=== PATIENT | male | born 1980 | race Caucasian/White ===

== ENCOUNTER 2017-09-22 22:25 | Emergency (ER) | payer MEDICAID ==
[~2017-09-22] VITALS: Ht 172.7 cm; Wt 77.0 kg
[2017-09-22] MEDS ORDERED: ketorolac trometh. 30mg/ml inj. IV ONE (22:55)
[2017-09-22] MEDS ORDERED: normal saline 1000ML IV soln IVB ONE (22:55)
[2017-09-22] MEDS ORDERED: ondansetron/PF 4mg/2ml inj IV ONE (22:55)
[2017-09-22 22:59] LABS: BASOPHILS % (AUTO) 0.4 % (0-1); EOSINOPHILS # (AUTO) 0.2 X10'3 (0-0.9); EOSINOPHILS % (AUTO) 2.7 % (0-6); HEMATOCRIT 38.5 % (42.0-52.0); LYMPHOCYTES # (AUTO) 3.1 X10'3 (1.1-4.8); LYMPHOCYTES % (AUTO) 39.6 % (21-51); MEAN CORPUSCULAR HEMOGLOBIN 28.7 PG (27.0-31.0); MEAN CORPUSCULAR HGB CONC 33.7 % (33.0-36.5); MEAN CORPUSCULAR VOLUME 85.1 FL (78-98); MONOCYTES # (AUTO) 0.9 X10'3 (0-0.9); NEUTROPHILS # (AUTO) 3.5 X10'3 (1.8-7.7); NEUTROPHILS % (AUTO) 45.3 % (42-75); PLATELET COUNT 145 X10'3 (140-440); RED BLOOD COUNT 4.52 X10'6 (4.70-6.10); RED CELL DISTRIBUTION WIDTH 14.8 % (11.5-14.5); WHITE BLOOD COUNT 7.8 X10'3 (4.5-11.0)
[2017-09-22 23:06] LABS: PROTHROMBIN TIME 10.3 SECONDS (9.0-12.0)
[2017-09-22 23:12] LABS: ALANINE AMINOTRANSFERASE 21 U/L (12-78); ALBUMIN 3.6 G/DL (3.4-5.0); ALBUMIN/GLOBULIN RATIO 0.9 (1.1-1.5); ALKALINE PHOSPHATASE 92 IU/L (46-116); ANION GAP 6 (8-16); ASPARTATE AMINO TRANSFERASE 19 U/L (10-37); BILIRUBIN,TOTAL 0.2 MG/DL (0.1-1.0); BLOOD UREA NITROGEN 11 MG/DL (7-18); BUN/CREATININE RATIO 12.1 (5.4-32.0); CHLORIDE 104 MMOL/L (99-107); CREATININE 0.91 MG/DL (0.60-1.10); GLUCOSE 83 MG/DL (70-104); POTASSIUM 4.2 MMOL/L (3.5-5.1); SODIUM 140 MMOL/L (135-145); TOTAL CARBON DIOXIDE 30.2 MMOL/L (24-32); TOTAL PROTEIN 7.6 G/DL (6.4-8.2); eGFR > 90 ML/MIN
[2017-09-22 23:35] LABS: CLARITY,URINE SLIGHTLY CLOUDY (Clear); COLOR,URINE YELLOW (Yellow); GLUCOSE, URINE NEGATIVE (Neg); KETONES,URINE NEGATIVE (Neg); LEUKOCYTE ESTERASE ,URINE NEGATIVE (Neg); NITRITES, URINE NEGATIVE (Neg); OCCULT BLOOD,URINE LARGE (Neg); PH,URINE 5.5 (4.8-8.0); PROTEIN,URINE 100 mg/dl (Neg)
[2017-09-22] MEDS ORDERED: morphine 4 MG/ML inj SYRINge IV ONE (23:35)
[2017-09-22] MEDS ORDERED: tamsulosin 0.4mg capsule PO ONE (23:41)
[2017-09-22 23:42] LABS: UA COLLECTION TYPE VOIDED
[2017-09-22 23:44] LABS: BACTERIA,URINE FEW /HPF (Neg); CAL OXALATE CRYSTALS FEW /HPF (NEGATIVE); RBC,URINE 50-100 /HPF (0-2); SQUAMOUS EPITHELIAL CELL,UR FEW /LPF (FEW); WBC,URINE 0-4 /HPF (0-4)
[2017-09-23] MEDS ORDERED: ONDA4TAB9 SL (00:17)
[2017-09-23] MEDS ORDERED: HYDR-565 PO (00:17)
[2017-09-23] MEDS ORDERED: FLO0.4C PO ×2 (00:17→02:10)
[2017-09-23] MEDS ORDERED: ondansetron/PF 4mg/2ml inj IV ONE (00:25)
[2017-09-23] MEDS ORDERED: morphine 5 MG/ML injection IV ONE (00:25)
[2017-09-23] MEDS ORDERED: morphine 4 MG/ML inj SYRINge IV ONE (00:35)
[2017-09-23] MEDS ORDERED: HYDR-3965 PO (02:10)
[2017-09-23] MEDS ORDERED: ONDA8TAB9 PO (02:10)
[2017-09-23 02:19] VITALS: BP 102/45
[2017-09-23] MEDS ORDERED: tamsulosin 0.4mg capsule PO SCH (21:00)
== END 2017-09-23 02:21 | disposition home or self-care (01) ==
LOC: ER 22:26
DX: N13.2 Hydronephrosis with renal and ureteral calculous obstruction (principal); Z79.899 Other long term (current) drug therapy
CPT/HCPCS: 36415; 74176; 80053; 81001; 85025; 85610; 96361; 96374; 96375; 96376; 99285; J1885; J2270; J2405; J7030

== ENCOUNTER → 2018-01-12 | Emergency (ER) | payer MEDICAID ==
[~2018-01-12] VITALS: Ht 172.7 cm; Wt 75.0 kg
[~2018-01-12] MED LIST: ACET-3067 PO; ONDA8TAB9 PO; acetaminophen w/codeine (30MG) #3 tablet PO ONE
[2018-01-12 10:54] VITALS: BP 127/68
== END | disposition home or self-care (01) ==
LOC: ER 10:52
DX: S60.022A Contusion of left index finger without damage to nail, initial encounter (principal); W23.0XXA Caught, crushed, jammed, or pinched between moving objects, initial encounter; Y93.89 Activity, other specified; Y92.89 Other specified places as the place of occurrence of the external cause; Y99.8 Other external cause status
CPT/HCPCS: 73140; 99284

== ENCOUNTER 2018-06-23 03:06 | Emergency (ER) | payer MEDICAID ==
[~2018-06-23] VITALS: Ht 172.7 cm; Wt 57.4 kg
[~2018-06-23 03:06] MED LIST changes: -ACET-3067 PO; -acetaminophen w/codeine (30MG) #3 tablet PO ONE
[2018-06-23 03:21] VITALS: BP 118/65
--- NOTE | 2018-06-23 04:54 | NUR ---
CHAPERONING DR JIMENEZ'S EXAM
[2018-06-23] MEDS ORDERED: HYDROcodone/acetaminophen 10/325mg tab PO ONE (04:55)
[2018-06-23 05:31] LABS: CLARITY,URINE CLOUDY (Clear); COLOR,URINE AMBER (Yellow); GLUCOSE, URINE NEGATIVE (Neg); KETONES,URINE NEGATIVE (Neg); LEUKOCYTE ESTERASE ,URINE NEGATIVE (Neg); NITRITES, URINE NEGATIVE (Neg); OCCULT BLOOD,URINE NEGATIVE (Neg); PH,URINE 5.5 (4.8-8.0); PROTEIN,URINE TRACE mg/dl (Neg); UA COLLECTION TYPE CLN CATCH MIDSTREAM; UROBILINOGEN,URINE 0.2 E.U/dL (0.2-1.0)
--- NOTE | 2018-06-23 05:34 | NUR ---
us at bedside
[2018-06-23 05:52] LABS: CAL OXALATE CRYSTALS 1+ /HPF (NEGATIVE); MUCUS STRANDS MANY /LPF (Neg); SQUAMOUS EPITHELIAL CELL,UR FEW /LPF (FEW)
[2018-06-23 05:56] LABS: WBC,URINE TNTC /HPF (0-4)
[2018-06-23 05:57] LABS: BACTERIA,URINE FEW /HPF (Neg); RBC,URINE NONE SEEN /HPF (0-2)
[2018-06-23] MEDS ORDERED: CefTRIAXone 250MG inj IM ONE (06:15)
[2018-06-23] MEDS ORDERED: DOXY100C43 PO (06:18)
[2018-06-23] MEDS ORDERED: HYDR-3965 PO (06:18)
[2018-06-23] MEDS ORDERED: DOXYCYCLINE 100MG CAPSULE PO ONE (06:20)
[2018-06-23] MEDS ORDERED: CefTRIAXone 250MG IM Kit w/LIDOcaine IM ONE (06:25)
== END 2018-06-23 06:31 | disposition home or self-care (01) ==
LOC: ER 03:06
DX: N45.1 Epididymitis (principal); F17.200 Nicotine dependence, unspecified, uncomplicated; Z87.442 Personal history of urinary calculi
CPT/HCPCS: 36415; 76870; 81001; 87088; 87491; 87591; 96372; 99283; J0696